=== PATIENT | female | born 1960 | race Caucasian/White ===

== ENCOUNTER 2021-10-30 12:32 | Outpatient (CLI) | payer OTHER | END 2021-10-30 12:42 | disposition home or self-care (01) | LOC: RAD 12:32 | PROVIDERS: ATTEND Family Medicine | DX: R07.89 Other chest pain (principal) ==

== ENCOUNTER 2024-03-23 07:40 | Inpatient (IN) | payer OTHER ==
[~2024-03-23] VITALS: Ht 154.9 cm; Wt 47.6 kg
[2024-03-23] MEDS ORDERED: TOPROL XL25 M1 (07:59)
[2024-03-23] MEDS ORDERED: FENOFIBRIC ACI105 MG PO (07:59)
[2024-03-23] MEDS ORDERED: GRALISE600 MG PO (08:00)
[2024-03-23] MEDS ORDERED: ACID REDUCER20 MG (08:00)
--- NOTE | 2024-03-23 08:07 | NUR ---
PTE ALERTA Y ORIENTADA X3 REFIERE VENIR A MARLENY POR REFERIDO MEDICO. PTE REFIERE DOLOR EN DALTON DEDO DEL PIE. AREA SE OBSERVA INFLAMADA. SE MIDEN S/V Y SE UBICA.
[2024-03-23] MEDS ORDERED: CEFTRIAXONE SODIUM 1,000 MG VIAL IV ONE (08:30)
[2024-03-23] MEDS ORDERED: CEFTRIAXONE SODIUM 1,000 MG VIAL ONE (08:36)
[2024-03-23 09:02] LABS: HEMATOCRIT 41.4 % (36.0-45.00); HEMOGLOBIN 13.8 g/dL (12.0-15.00); MEAN CELL VOLUME 90.1 fL (80.00-100.00); MEAN CORPUSCULAR HEMOGLOBIN 30.1 pg (27.00-32.0); MEAN CORPUSCULAR HGB CONC 33.4 g/dl (32.0-36.0); PLATELET COUNT 235 K/uL (150-450)
--- NOTE | 2024-03-23 09:08 | NUR ---
PTE EVALUADO POR MD [facility] MED A PTE SE EDCUA A PTE SOBRE EL MIMSO Y PTE REFEIRE ENTENDER. SE LLEVA ACABO ORDENES BAJO MEDIDAS ACEPTICAS. PTE PEND A RESULTADOS DE LABS Y REALIZACION DE IMAGENES.
[2024-03-23 09:40] LABS: CALCIUM 10.1 mg/dL (8.5-10.1); CREATININE SERUM 0.63 mg/dL (0.55-1.02); GFR 95.75; POTASSIUM 4.95 mEq/L (3.5-5.1)
[2024-03-23] MEDS ORDERED: LIDOCAINE HCL 1% 10ML VIAL ONE (10:23)
[2024-03-23] MEDS ORDERED: FAMOTIDINE/PF 20 MG in 0.9 % SODIUM CHLORIDE 100 ML IV SCH (11:29)
[2024-03-23] MEDS ORDERED: ACETAMINOPHEN 325 MG TABLET PO PRN (11:30)
[2024-03-23] MEDS ORDERED: 0.9 % SODIUM CHLORIDE 1,000 ML IV SCH (11:45)
[2024-03-23] MEDS ORDERED: GABAPENTIN 800 MG TABLET PO SCH ×2 (11:51→21:00)
[2024-03-23] MEDS ORDERED: METOPROLOL TARTRATE 25 MG TABLET PO SCH ×2 (11:51→21:00)
[2024-03-23] MEDS ORDERED: NICOTINE 21MG/24HR PATCH.TD24 TD ONE (12:00)
[2024-03-23] MEDS ORDERED: ACETAMINOPHEN 500 MG GEL..CAP PO PRN (12:15)
[2024-03-23] MEDS ORDERED: NICOTINE 21MG/24HR PATCH.TD24 TD SCH (12:44)
[2024-03-23] MEDS ORDERED: CLINDAMYCIN PHOSPHATE 300 MG in 0.9 % SODIUM CHLORIDE 50 ML IV SCH (13:00)
[2024-03-23] MEDS ORDERED: CLINDAMYCIN PHOSPHATE 150 MG/ML (300mg) ONE (13:08)
[2024-03-23] MEDS ORDERED: FAMOTIDINE/PF 20 MG/2 ML VIAL ONE (13:09)
[2024-03-23 13:23] LABS: INR 0.95; PARTIAL THROMBOPLASTIN TIME 22.5 SECONDS (22.0-34.0); PROTHROMBIN TIME 10.4 SECONDS (9.0-11.5)
[2024-03-23 15:45] VITALS: BP 110/52; O2SAT 99
[2024-03-23 17:02] VITALS: BP 109/68; O2SAT 100
[2024-03-24 00:35] VITALS: BP 108/61; O2SAT 98
[2024-03-24 09:10] VITALS: BP 124/68; O2SAT 99
[2024-03-24] MEDS ORDERED: VANCOMYCIN HCL 500 MG VIAL IV SCH (12:31)
[2024-03-24 16:00] VITALS: BP 133/69; O2SAT 99
[2024-03-24] MEDS ORDERED: CEFEPIME HCL 2,000 MG VIAL IV SCH (17:00)
[2024-03-24] MEDS ORDERED: LACTOBACILLUS ACIDOPHILUS 1 CAP CAP PO SCH (17:00)
[2024-03-24] MEDS ORDERED: NICOTINE 21MG/24HR PATCH.TD24 TD SCH (17:00)
[2024-03-25 01:54] VITALS: BP 100/54; O2SAT 96
[2024-03-25 06:00] LABS: HEMATOCRIT 30.5 % (36.0-45.00); HEMOGLOBIN 10.3 g/dL (12.0-15.00); MEAN CORPUSCULAR HEMOGLOBIN 30.7 pg (27.00-32.0); MEAN CORPUSCULAR HGB CONC 33.8 g/dl (32.0-36.0); PLATELET COUNT 171 K/uL (150-450); RED BLOOD COUNT 3.35 M/uL (4.00-6.00); RED CELL DISTRIBUTION WIDTH 13.6 % (11.5-14.5)
[2024-03-25 06:40] LABS: ALBUMIN 2.6 gm/dL (3.4-5.0); ALT/SGPT 11 U/L (12-78); AST/SGOT 12 U/L (15-37); BILIRUBIN TOTAL 0.25 mg/dL (0.3-1.2); BLOOD UREA NITROGEN 11 mg/dL (7-18); BUN CREA RATIO 20 (7.0-25.0); CALCIUM 8.5 mg/dL (8.5-10.1); CARBON DIOXIDE 26 mEq/L (21-32); CREATININE SERUM 0.54 mg/dL (0.55-1.02); GFR 114.39; GLOBULINA 2.4 G/DL (2.4-3.5); GLUCOSE FASTING 104 mg/dL (65-100); OSMOLALITY SERUM 292 MOSM/KG (275-295); PHOSPHOROUS 3.4 mg/dL (2.5-4.9); POTASSIUM 3.86 mEq/L (3.5-5.1); SODIUM 147 mmol/L (136-145)
[2024-03-25 06:43] LABS: ANION GAP 8 (10.0-20.0); C-REACTIVE PROTEIN < 0.29 MG/DL (0.00-0.29); CHLORIDE 117 mmol/L (98-107)
[2024-03-25 06:44] LABS: ALKALINE PHOSPHATASE 28 U/L (50-136)
[2024-03-25 09:21] VITALS: BP 129/78; O2SAT 95
[2024-03-25] MEDS ORDERED: MAGNESIUM SULFATE IN WATER 50 ML IV NR (17:00)
[2024-03-25 19:09] VITALS: BP 130/71; O2SAT 97
[2024-03-26 02:20] VITALS: BP 95/63; O2SAT 95
[2024-03-26 08:52] VITALS: BP 126/74; O2SAT 97
[2024-03-26 17:35] VITALS: BP 156/83; O2SAT 100
[2024-03-26] MEDS ORDERED: VANCOMYCIN HCL 5 MG/ML REDILUIDO IV SCH (21:00)
== END 2024-03-26 18:30 | disposition left against medical advice (07) | DRG 607 ==
LOC: ER 07:40 → SEC-K 12:13 → MEDI 12:13 → MEDJ 03-25 21:26 → MEDI 03-25 21:51
PROVIDERS: General Practice; Internal Medicine Infectious Disease; ADMIT Internal Medicine; ATTEND Internal Medicine
PROC: 0HBRXZZ Excision of Toe Nail, External Approach (ICD-10-PCS; principal; 2024-03-23)
PROC: BL31ZZZ Magnetic Resonance Imaging (MRI) of Lower Extremity Connective Tissue (ICD-10-PCS; 2024-03-23)
PROC: BL31YZZ Magnetic Resonance Imaging (MRI) of Lower Extremity Connective Tissue using Other Contrast (ICD-10-PCS; 2024-03-23)
DX: B35.1 Tinea unguium (principal); L03.032 Cellulitis of left toe